=== PATIENT | female | born 1935 | race African-American/Black ===

== ENCOUNTER 2016-10-26 09:40 | Emergency (ER) | payer BC, MEDICARE ==
[~2016-10-26] VITALS: Ht 160 cm; Wt 74.8 kg
--- NOTE | 2016-10-26 10:15 | RAD ---
Indication constipation. Abdominal discomfort. A single view of the chest was obtained as well as flat and upright films of the abdomen. The chest is compared to an examination 7 years ago. The heart and pulmonary vessels appear normal. The lungs are clear. There is no pleural fluid or pneumothorax. There is mild scoliosis. Mild degenerative changes are seen in the visualized spinal column. There is no free air. The abdominal gas pattern is normal. No organomegaly or abnormal calculi are seen. Several calcifications are seen in the pelvis compatible with phleboliths. 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 IMPRESSION: No acute or significant finding seen in the chest or abdomen on plain films
[2016-10-26] MEDS ORDERED: MAGNESIUM CITRATE 296 ML SOLUTION. PO ONE (10:45)
[2016-10-26 10:50] VITALS: BP 134/70
[2016-10-26] MEDS ORDERED: POLY17PO29 PO (10:53)
--- NOTE | 2016-10-26 10:53 | PHYS DOC ---
Past Medical History Past Medical History: Arthritis, Constipation, Hypertension Past Surgical History: Hip Replacement, Other Additional Past Surgical Histo: left knee surgery Alcohol Use: None Drug Use: None Adult General Chief Complaint Chief Complaint: CONTISPATION HPI HPI Patient is a 81 year old female with history of hypertension, arthritis, and constipation who presents today complaining of constipation. Patient states for the last 1 month she is not had regular movements as usual on a daily. Patient states she used Metamucil Colace and prune juice and had a small bowel movement yesterday. Patient denies any abdominal pain, nausea or vomiting. Denies any diarrhea. Her last PO intake was this morning which she tolerated with no issues. Review of Systems Review of Systems Constitutional: Denies fever or chills [] Eyes: Denies change in visual acuity, redness, or eye pain [] HENT: Denies nasal congestion or sore throat [] Respiratory: Denies cough or shortness of breath [] Cardiovascular: No additional information not addressed in HPI [] GI constipation : Denies dysuria or hematuria [] Musculoskeletal: Denies back pain or joint pain [] Integument: Denies rash or skin lesions [] Neurologic: Denies headache, focal weakness or sensory changes [] Endocrine: Denies polyuria or polydipsia [] Allergies Allergies Allergies Coded Allergies Type Severity Reaction Last Updated Verified No Known Drug Allergies 09/19/13 No Physical Exam Physical Exam Constitutional: Well developed, well nourished, no acute distress, non-toxic appearance. [] HENT: Normocephalic, atraumatic, bilateral external ears normal, oropharynx moist, no oral exudates, nose normal. [] Eyes: PERRLA, EOMI, conjunctiva normal, no discharge. [] Neck: Normal range of motion, no tenderness, supple, no stridor. [] Cardiovascular:Heart rate regular rhythm, no murmur [] Lungs & Thorax: Bilateral breath sounds clear to auscultation [] Abdomen: Bowel sounds normal, soft, no tenderness, no masses, no pulsatile masses. [] Skin: Warm, dry, no erythema, no rash. [] Back: No tenderness, no CVA tenderness. [] Extremities: No tenderness, no cyanosis, no clubbing, ROM intact, no edema. [] Neurologic: Alert and oriented X 3, normal motor function, normal sensory function, no focal deficits noted. [] Psychologic: Affect normal, judgement normal, mood normal. [] Current Patient Data Vital Signs Vital Signs Date Time Temp Pulse Resp B/P (MAP) Pulse Ox O2 Delivery O2 Flow Rate FiO2 10/26/16 10:17 98.3 75 15 157/74 (101) 98 Room Air 98.3 EKG EKG [] Radiology/Procedures Radiology/Procedures []PROCEDURE: ACUTE ABDOMEN SERIES Indication constipation. Abdominal discomfort. A single view of the chest was obtained as well as flat and upright films of the abdomen. The chest is compared to an examination 7 years ago. The heart and pulmonary vessels appear normal. The lungs are clear. There is no pleural fluid or pneumothorax. There is mild scoliosis. Mild degenerative changes are seen in the visualized spinal column. There is no free air. The abdominal gas pattern is normal. No organomegaly or abnormal calculi are seen. Several calcifications are seen in the pelvis compatible with phleboliths. 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 IMPRESSION: No acute or significant finding seen in the chest or abdomen on plain films DICTATED and SIGNED BY: FLAVIO BECERRIL MD DATE: 10/26/16 1010 CC: MACKENZIE DOWNS; EDWARD BRAND APRN; NON,STAFF ~ Course & Med Decision Making Course & Med Decision Making Pertinent Labs and Imaging studies reviewed. (See chart for details) Patient is in the ED complaining of constipation. This is a chronic issue for her. She follows up with her PCP on this. She had a small bowel movement yesterday. We did an acute abdominal series in the ED which did not show anything acute. Her last bowel movement was yesterday. She is currently on Metamucil and Colace and prune juice. We gave her a bottle of mag citrate in the ED. We talked about increasing dietary fiber intake as well as water intake. She will follow-up with her own doctor in the next 7 days. She was provided return precautions and discharged in stable condition. Dragon Disclaimer Dragon Disclaimer This electronic medical record was generated, in whole or in part, using a voice recognition dictation system. Departure Departure Impression: Primary Impression: Constipation Disposition: 01 HOME, SELF-CARE Condition: STABLE Referrals: MACKENZIE DOWNS (PCP) follow up with your doctor in one week Patient Instructions: Constipation, Adult Additional Instructions: You were seen for constipation. Please consider increasing your dietary fiber intake as well as a water intake. Consider taking MiraLAX on daily basis. Continue using Colace every day. Use magnesium citrate occasionally for constipation. Follow-up with your doctor in the next 7 days. Scripts Polyethylene Glycol 3350 (MIRALAX) 17 Gm Powd.pack 1 PACKET PO DAILY, #30 PACKET 3 Refills Prov: EDWARD BRAND APRN 10/26/16 Problem Qualifiers Primary Impression: Constipation Constipation type: unspecified constipation type Qualified Codes: K59.00 - Constipation, unspecified EDWARD BRAND BRANCH LIBRARY CLERK October 26, 2016 10:53
== END 2016-10-26 10:58 | disposition home or self-care (01) ==
LOC: ER 09:40
DX: K59.00 Constipation, unspecified (principal); I10 Essential (primary) hypertension; M19.90 Unspecified osteoarthritis, unspecified site
CPT/HCPCS: 74022; 99284

== ENCOUNTER → 2016-12-25 | Outpatient (CLI) | payer BC ==
[~2016-12-25] MED LIST: CEPH500T PO; GADOBUTROL 7.5 MMOL/7.5 ML VIAL IV ONE; POLY17PO29 PO
--- NOTE | 2016-12-25 11:38 | RAD ---
EXAM: MRI LUMBAR SPINE WITH AND WITHOUT CONTRAST. HISTORY: Low back pain with left lower extremity radiculopathy. TECHNIQUE: Magnetic resonance images of the lumbar spine were obtained before and after the intravenous administration of 7.5 mL Gadavist. COMPARISON: None. FINDINGS: There is slight retrolisthesis at L2-3. No fractures are identified. Degenerative disc disease is severe from L1 through L3 and at L4-5. It is moderate at L3-4 and mild at L5-S1. The conus is at L1 and appears normal. There is one enhancing sacral nerve root. There is metallic artifact associated with bilateral total hip arthroplasties on the nurses medical assistants phlebotomists image. A cyst at the lower pole the left kidney measures 5.4 x 4.8 cm. 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 At L1-2, there is a moderate posterior disc bulge. Facet and ligamentum flavum and is mild bilaterally. At L2-3, there is a moderate posterior disc-osteophyte complex. Facet osteoarthritis is moderate on the right greater than left. These narrow the right lateral recess moderately. Neural foraminal stenosis is moderate on the right and mild left. At L3-4, there is a small posterior disc bulge. There is no stenosis. There are changes of right hemilaminotomy. There is no space-occupying granulation tissue. At L4-5, there is a moderate posterior disc-osteophyte complex with a superimposed right paracentral protrusion. It measures 6 mm anteroposteriorly. There is mild mass effect on the right L5 nerve root. Neural foraminal stenosis is moderate to severe on the right. Facet osteoarthritis is moderate bilaterally. At L5-S1, there is a small posterior disc bulge. Facet osteoarthritis is moderate to severe bilaterally. There is mild left neural foraminal narrowing. IMPRESSION: 1. Degenerative disc disease is severe from L1 through L3 and at L4-5. It is moderate at L3-4 and mild at L5-S1. 2. Right lateral recess stenosis is moderate at L4-5 secondary to a 6 mm right paracentral protrusion. Neural foraminal stenosis is moderate to severe at this level. 3. Additional lateral recess stenosis is mild on the right at L2-3. Additional neural foraminal stenosis is mild to moderate as above. 4. One enhancing nerve root appears to be associated with the sacral level. This may be an incidental finding or reflect radiculitis. Electronically signed by: Gianluca Castillo MD (12/25/2016 11:35 AM)
== END | disposition home or self-care (01) ==
LOC: MRI 09:53
PROVIDERS: ATTEND Neurological Surgery
DX: M51.16 Intervertebral disc disorders with radiculopathy, lumbar region (principal); M48.06 Spinal stenosis, lumbar region; I10 Essential (primary) hypertension
CPT/HCPCS: 72158; A9585

== ENCOUNTER 2016-12-28 09:57 | Emergency (ER) | payer BC ==
[~2016-12-28] VITALS: Ht 160 cm; Wt 74.8 kg
[~2016-12-28 09:57] MED LIST changes: -CEPH500T PO; -GADOBUTROL 7.5 MMOL/7.5 ML VIAL IV ONE
--- NOTE | 2016-12-28 10:30 | PHYS DOC ---
Past Medical History Past Medical History: Arthritis, Constipation, Hypertension Past Surgical History: Hip Replacement, Other Additional Past Surgical Histo: left knee surgery Alcohol Use: None Drug Use: None Adult General Chief Complaint Chief Complaint: OTHER COMPLAINTS [facility] HPI Patient is a 81 year old female who lives in assisted living presents to the emergency department with a history of frequent falls. Patient states she has a history of HTN, chronic back issues and constipation. Patient state she has fallen at least 3 times in the last week. She denies hitting her head. Patient denies using any assistive devises for ambulation. She is not a good historian. She denies light headedness, SOA, and chest pain. She states my knees just give out. Patient continues to state she had an MRI of her back although does not know the results. Patient is c/o left knee pain today after a fall yesterday. She does have 1 new bruise to the left upper knee area, and 1 old bruise to the medial area of the knee. Patient continues to state she started taking ultram yesterday. Review of Systems Review of Systems Constitutional: Denies fever or chills [] Eyes: Denies change in visual acuity, redness, or eye pain [] HENT: Denies nasal congestion or sore throat [] Respiratory: Denies cough or shortness of breath [] Cardiovascular: No additional information not addressed in HPI [] GI: Denies abdominal pain, nausea, vomiting, bloody stools or diarrhea [] : Denies dysuria or hematuria [] Musculoskeletal: Denies back pain. C/o left knee pain after multiple falls. Integument: Denies rash or skin lesions [] Neurologic: Denies headache, focal weakness or sensory changes [] Endocrine: Denies polyuria or polydipsia [] Allergies Allergies Allergies Coded Allergies Type Severity Reaction Last Updated Verified No Known Drug Allergies 09/19/13 No Physical Exam Physical Exam Constitutional: Well developed, well nourished, no acute distress, non-toxic appearance. [] HENT: Normocephalic, atraumatic, bilateral external ears normal, oropharynx moist, no oral exudates, nose normal. [] Eyes: PERRLA, EOMI, conjunctiva normal, no discharge. [] Neck: Normal range of motion, no tenderness, supple, no stridor. [] Cardiovascular:Heart rate regular rhythm, no murmur [] Lungs & Thorax: Bilateral breath sounds clear to auscultation [] Abdomen: Bowel sounds hypoactive, soft, no tenderness, no masses, no pulsatile masses. [] Skin: Warm, dry, no erythema, no rash. [] Back: No tenderness Extremities: No tenderness, no cyanosis, no clubbing, ROM intact, no edema. No swelling noted to the left knee, peripheral pulses 2+ cap refill brisk < 2 seconds. Patient with good sensation noted. Neurologic: Alert and oriented X 3, normal motor function, normal sensory function, no focal deficits noted. [] Psychologic: Affect normal, judgement normal, mood normal. [] Current Patient Data Vital Signs Vital Signs Date Time Temp Pulse Resp B/P (MAP) Pulse Ox O2 Delivery O2 Flow Rate FiO2 12/28/16 10:00 98.4 97 20 139/65 (89) 95 Room Air 98.4 Lab Values Laboratory Tests Test 12/28/16 10:52 12/28/16 11:25 White Blood Count 9.4 x10^3/uL (4.0-11.0) Red Blood Count 3.75 x10^6/uL (3.50-5.40) Hemoglobin 12.3 g/dL (12.0-15.5) Hematocrit 36.2 % (36.0-47.0) Mean Corpuscular Volume 97 fL (79-100) Mean Corpuscular Hemoglobin 33 pg (25-35) Mean Corpuscular Hemoglobin Concent 34 g/dL (31-37) Red Cell Distribution Width 12.6 % (11.5-14.5) Platelet Count 303 x10^3/uL (140-400) Neutrophils (%) (Auto) 78 % (31-73) H Lymphocytes (%) (Auto) 9 % (24-48) L Monocytes (%) (Auto) 12 % (0-9) H Eosinophils (%) (Auto) 0 % (0-3) Basophils (%) (Auto) 1 % (0-3) Neutrophils # (Auto) 7.3 x10^3uL (1.8-7.7) Lymphocytes # (Auto) 0.8 x10^3/uL (1.0-4.8) L Monocytes # (Auto) 1.1 x10^3/uL (0.0-1.1) Eosinophils # (Auto) 0.0 x10^3/uL (0.0-0.7) Basophils # (Auto) 0.1 x10^3/uL (0.0-0.2) Sodium Level 138 mmol/L (136-145) Potassium Level 3.6 mmol/L (3.5-5.1) Chloride Level 99 mmol/L (98-107) Carbon Dioxide Level 31 mmol/L (21-32) Anion Gap 8 (6-14) Blood Urea Nitrogen 20 mg/dL (7-20) Creatinine 0.9 mg/dL (0.6-1.0) Estimated GFR (Cockcroft-Gault) 73.1 BUN/Creatinine Ratio 22 (6-20) H Glucose Level 206 mg/dL (70-99) H Calcium Level 9.9 mg/dL (8.5-10.1) Total Bilirubin 0.8 mg/dL (0.2-1.0) Aspartate Amino Transferase (AST) 22 U/L (15-37) Alanine Aminotransferase (ALT) 17 U/L (14-59) Alkaline Phosphatase 75 U/L (46-116) Troponin I Quantitative < 0.017 ng/mL (0.000-0.055) Total Protein 7.5 g/dL (6.4-8.2) Albumin 3.8 g/dL (3.4-5.0) Albumin/Globulin Ratio 1.0 (1.0-1.7) Urine Collection Type Unknown Urine Color Yellow Urine Clarity Clear Urine pH 7.0 Urine Specific Sharon 1.020 Urine Protein Negative mg/dL (NEG-TRACE) Urine Glucose (UA) Negative mg/dL (NEG) Urine Ketones (Stick) Negative mg/dL (NEG) Urine Blood Negative (NEG) Urine Nitrite Negative (NEG) Urine Bilirubin Negative (NEG) Urine Urobilinogen Dipstick 1.0 mg/dL (0.2 mg/dL) Urine Leukocyte Esterase Trace (NEG) Urine RBC 0 /HPF (0-2) Urine WBC Occ /HPF (0-4) Urine Squamous Epithelial Cells Mod /LPF Urine Bacteria Few /HPF (0-FEW) Laboratory Tests 12/28/16 10:52 Laboratory Tests 12/28/16 10:52 EKG EKG EKG completed at 1027. Heart rate 75 sinus rhythm noted no STEMI per Dr. Boyle. [] Radiology/Procedures Radiology/Procedures [][facility] [address] [place] [address] IMAGING REPORT Signed PATIENT: REJI AGUILAR I ACCOUNT: [id number] : 1935 LOCATION: ER AGE: 81 SEX: F EXAM STATUS: REG ER ORD. PHYSICIAN: SYDNI WASHINGTON APRN REASON: multiple falls PROCEDURE: KNEE LEFT 4V Examination: 4 views of the left knee History: History of knee pain, fall. Comparison: None available. Findings: Left knee arthroplasty changes in normal alignment. There is no acute fracture or dislocation identified. Small sclerotic focus identified in the medial distal femur probably a bone island. Impression: 1. Arthroplasty changes in normal alignment. 2. No acute osseous findings. DICTATED and SIGNED BY: LUCI VIZCARRA MD DATE: 12/28/161048 CC: MACKENZIE DOWNS; SYDNI WASHINGTON APRN ~ Course & Med Decision Making Course & Med Decision Making Pertinent Labs and Imaging studies reviewed. (See chart for details) Urine was positive for trace leukocyte Estrace. CBC, chemistries and troponin as well as x-rays are normal. X-rays with no bony abnormalities. Spoke with patient in regards to being placed into the hospital for placement. Patient however is in assisted living. Patient was also provided with information in regards to using a walker as opposed to being admitted. Patient does have access to a walker in which she will hand picker on the way home. Patient states that her knee is getting stiff. Explained to patient that active range of motion will help with the stiffness this is related to falls. Patient was encouraged to use ice packs on 20 minutes off 20 minutes several times a day elevation as much as possible. Patient will be recommended to use Tylenol or low -dose ibuprofen for pain and discomfort. Patient was encouraged to follow-up with Dr. rios and a orthopedic doctor for evaluation of her back as well as her left knee. Patient will be discharged home in stable condition signs and symptoms to return back to the emergency department been provided with both patient and family member at bedside agree with the treatment regimen. Patient was encouraged to drink plenty of fluids such as water and cranberry juice. She' ll be placed on Keflex for urinary tract infection. Dragon Disclaimer Dragon Disclaimer This electronic medical record was generated, in whole or in part, using a voice recognition dictation system. Departure Departure Impression: Primary Impression: Falls Additional Impressions: Left knee pain Urinary tract infection Disposition: HOME, SELF-CARE Condition: STABLE Referrals: MACKENZIE DOWNS (PCP) KARISHMA FERREIRA II, MD Patient Instructions: Fall Prevention and Home Safety, [id number], Knee Pain , [id number], Urinary Tract Infection, [id number], Walker Use Additional Instructions: Your lab results were negative for any abnormality however your glucose was slightly elevated. Your x-ray was negative for any bony abnormalities. Urine was positive for trace of leukocyte Estrace which identifies a urinary tract infection. Medication as prescribed. Drink plenty of fluids such as water and cranberry juice. Avoid cranberry juice cocktail, carbonated beverages, caffeine, alcohol, citrus fruits as these are all considered irritants to the bladder. You may use Tylenol or ibuprofen for pain and discomfort. Please use this as directed by aircraft engine technician [id number]. Ice packs on 20 minutes off 20 minutes several times a day. Elevation as much as possible. Use the walker in which she state you have access to whenever you are up ambulating to help prevent falls. Follow-up with Dr. Davalos in the next 3-5 days. Follow-up with orthopedic in the next week if he continued have pain and discomfort in the left knee area. Return back to emergency department for signs and symptoms of become worse. Scripts Cephalexin (CEPHALEXIN) 500 Mg Tablet 1 TAB PO BID, #14 TAB Prov: SYDNI WASHINGTON APRN 12/28/16 Problem Qualifiers SYDNI WASHINGTON APRN Dec 28, 2016 10:30
--- NOTE | 2016-12-28 11:02 | RAD ---
Examination: 4 views of the left knee History: History of knee pain, fall. Comparison: None available. Findings: Left knee arthroplasty changes in normal alignment. There is no acute fracture or dislocation identified. Small sclerotic focus identified in the medial distal femur probably a bone island. Impression: 1. Arthroplasty changes in normal alignment. 2. No acute osseous findings.
[2016-12-28 11:04] LABS: BASO # 0.1 x10^3/uL (0.0-0.2); BASO % 1 % (0-3); EOS % 0 % (0-3); HEMATOCRIT 36.2 % (36.0-47.0); HEMOGLOBIN 12.3 g/dL (12.0-15.5); LYMPH # 0.8 x10^3/uL (1.0-4.8); LYMPH % 9 % (24-48); MEAN CORPUSCULAR HEMOGLOBIN 33 pg (25-35); MEAN CORPUSCULAR HGB CONC 34 g/dL (31-37); MEAN CORPUSCULAR VOLUME 97 fL (79-100); MONO % 12 % (0-9); NEUT % 78 % (31-73); PLATELET COUNT 303 x10^3/uL (140-400); RED BLOOD COUNT 3.75 x10^6/uL (3.50-5.40); RED CELL DISTRIBUTION WIDTH 12.6 % (11.5-14.5); WHITE BLOOD COUNT 9.4 x10^3/uL (4.0-11.0)
[2016-12-28 11:10] LABS: CALCIUM 9.9 mg/dL (8.5-10.1); CREATININE 0.9 mg/dL (0.6-1.0); GFR 73.1; POTASSIUM 3.6 mmol/L (3.5-5.1)
[2016-12-28 11:15] LABS: ALBUMIN 3.8 g/dL (3.4-5.0); TOTAL BILIRUBIN 0.8 mg/dL (0.2-1.0); TOTAL PROTEIN 7.5 g/dL (6.4-8.2)
--- NOTE | 2016-12-28 11:41 | EKG ---
[facility] [address] [place] [address] Test Date: 2016-12-28 Test Time: 10:27:08 Pat Name: REJI AGUILAR Department: Room: Gender: F Glass Crusher: : 1935 Requested By: SYDNI WASHINGTON Order Number: [id number] Reading MD: Measurements Intervals [place] Rate: 75 P: 31 VA: 178 QRS: 71 QRSD: 94 T: 16 QT: 352 QTc: 396 Interpretive Statements SINUS RHYTHM QRS(T) CONTOUR ABNORMALITY CONSIDER ANTEROLATERAL MYOCARDIAL DAMAGE RI6.01 Unconfirmed report No previous ECG available for comparison
[2016-12-28 11:43] LABS: BILIRUBIN,URINE NEGATIVE (NEG); GLUCOSE,URINE NEGATIVE (NEG); NITRITE,URINE NEGATIVE (NEG); PROTEIN,URINE NEGATIVE (NEG-TRACE)
[2016-12-28 11:55] LABS: BACTERIA,URINE FEW /HPF (0-FEW); RBC,URINE 0 /HPF (0-2); SQUAMOUS EPITHELIAL CELL,UR MOD /LPF; WBC,URINE OCC /HPF (0-4)
[2016-12-28] MEDS ORDERED: CEPH500T PO (12:00)
[2016-12-28 12:12] VITALS: BP 154/73
== END 2016-12-28 12:34 | disposition home or self-care (01) ==
LOC: ER 09:57
DX: N39.0 Urinary tract infection, site not specified (principal); M25.562 Pain in left knee; I10 Essential (primary) hypertension; M19.90 Unspecified osteoarthritis, unspecified site; Z96.642 Presence of left artificial hip joint; Z98.890 Other specified postprocedural states; W18.39XA Other fall on same level, initial encounter; Y93.89 Activity, other specified; Y99.8 Other external cause status; Y92.89 Other specified places as the place of occurrence of the external cause
CPT/HCPCS: 36415; 73564; 80053; 81001; 84484; 85027; 87086; 93005; 99285-25

== ENCOUNTER 2018-10-27 05:42 | Emergency (ER) | payer BC ==
[~2018-10-27] VITALS: Ht 160 cm; Wt 70.3 kg
[~2018-10-27 05:42] MED LIST changes: +CEPH500T PO
[2018-10-27 05:50] VITALS: BP 120/59
[2018-10-27] MEDS ORDERED: HYDROcodone/APAP 5/325MG 1 TAB TABLET PO ONE (06:30)
--- NOTE | 2018-10-27 06:57 | RAD ---
Examination: CT lumbar spine without contrast HISTORY: History of low back pain COMPARISON: None available TECHNIQUE: Axial CT images of the lumbar spine were performed without contrast. Coronal and sagittal reformats are performed Exposure: One or more of the following individualized dose reduction techniques were utilized for this examination: 1. Automated exposure control 2. Adjustment of the mA and/or kV according to patient size 3. Use of iterative reconstruction technique FINDINGS: The lumbar vertebral body heights are maintained. Severe intervertebral disc height loss identified throughout the lumbar spine likely due to degeneration. L1-L2: Diffuse disc bulge with left paracentral disc protrusion identified. Moderate spinal canal stenosis. Moderate left, mild right neural foraminal narrowing. L2-L3: Diffuse disc bulge with left paracentral disc protrusion. Moderate spinal canal stenosis. Moderate left, mild right neural foraminal narrowing L3-L4: Diffuse disc bulge causing moderate spinal canal stenosis. Mild bilateral neural foraminal narrowing L4-L5: Diffuse disc bulge causing posterior disc protrusion causing moderate to severe spinal canal stenosis. Moderate bilateral neural foraminal narrowing. L4 right hemilaminectomy changes. L5-S1: Diffuse disc bulge causing [id number] spinal canal stenosis. Mild bilateral neural foraminal narrowing IMPRESSION: Multilevel degenerative changes lumbar spine as described above. If pain persists , recommend follow-up MRI. Electronically signed by: Kamaljit Higgins MD (10/27/2018 6:54 AM) [id number]
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
[2018-10-27] MEDS ORDERED: METH4TAB2 PO (08:07)
[2018-10-27] MEDS ORDERED: HYDR-3164 PO (08:07)
== END 2018-10-27 08:22 | disposition home or self-care (01) ==
LOC: ER 05:42
DX: S39.012A Strain of muscle, fascia and tendon of lower back, initial encounter (principal); M51.26 Other intervertebral disc displacement, lumbar region; I10 Essential (primary) hypertension; Z96.649 Presence of unspecified artificial hip joint; X50.0XXA Overexertion from strenuous movement or load, initial encounter; Y93.89 Activity, other specified; Y92.89 Other specified places as the place of occurrence of the external cause; Y99.8 Other external cause status
CPT/HCPCS: 72131; 99284-25

== ENCOUNTER → 2019-03-01 | Outpatient (CLI) | payer BC ==
[2019-01-15 11:08] VITALS: BP 130/86
[~2019-03-01] MED LIST changes: +DILT360C2 PO; +HYDR-3164 PO; +IOHEXOL 180 MG/ML 10 ML VIAL. ONE; +METH4TAB2 PO; +TRIA1CAP3 PO; +methylPREDNISolone ACETATE 40 MG/ML VIAL. ONE; +methylPREDNISolone ACETATE 80 MG/ML VIAL. ONE
--- NOTE | 2019-03-01 23:06 | PAIN ---
DATE OF SERVICE: 03/01/2019 PROGRESS NOTE FOR PAIN CLINIC DIAGNOSES: Lumbar radiculopathy with lumbar degenerative disk disease and lumbar post-laminectomy syndrome. HISTORY OF PRESENT ILLNESS: The patient is an 83-year-old female who returns for followup status post lumbar epidural steroid injection x 1, last seen as an inpatient on 01/13/2019. The patient did very well, reports now about a 60-70% improvement after the injection for several weeks, the pain is returning now; however, over the past week or so in the right lower extremity, lateral calf and foot with numbness and tingling. The patient reports it is a 3 on a scale of 10 at its worst, 2 on average and a 1 at its least over the past week. The patient reports it is tingling, burning, constant, and severe in the right foot with walking, standing, changing positions, does not awaken her from sleep at night, though worse with weightbearing only. The patient reports no new motor or sensory deficits, no new bowel or bladder incontinence. PHYSICAL EXAMINATION: VITAL SIGNS: The patient's blood pressure 115/62, pulse 76, respirations are 18, temperature 98.2 degrees Fahrenheit, height is 5 feet 3 inches, and weight is 152 pounds. GENERAL: The patient is awake, alert, oriented, appropriate, very pleasant demeanor. HEENT: Shows normocephalic, atraumatic. Extraocular movements are intact and symmetrical. Oral cavity: Mucous membranes moist and pink. Dentition is intact. NECK: Shows anterior throat supple without palpable lymphadenopathy noted. Swallow reflex symmetrical. CHEST: Shows normal on inspection. Breath sounds clear to auscultation bilaterally. HEART: Shows S1, S2 clear. No murmurs auscultated. ABDOMEN: Soft, nontender, nondistended. No palpable organomegaly is noted. No rebound or guarding demonstrated. BACK: Shows spine grossly in the midline. Normal-appearing thoracic kyphosis and minor flattening of lumbar lordotic curvature. Lumbar paraspinous muscle shows symmetrical on inspection, on palpation shows some moderate tenderness with palpation, but only diffusely without significant radiation. The patient has good rotational motion of lumbar spine, both laterally as well as extension and flexion without significant difficulty. EXTREMITIES: The patient's lower extremities show deep tendon reflexes 1+ in the patellar and tendo-calcaneus tendon. Motor exam is approximately 4 on a scale of 5 on the right and 5/5 on the left with dorsiflexion. Peripheral pulses are 1+ posterior tibia. No peripheral edema is noted bilaterally. Options were discussed with the patient. The patient's old chart was reviewed as her current medication regimen updated. Current review of systems updated today as well. We will proceed with a second in the series of lumbar epidural steroid injection today with fluoroscopic guidance. Risks were again discussed including, but not limited to bleeding, infection, possibility of epidural hematoma, subsequent neurological compromise, dural puncture, headaches, spinal cord and/or nerve damage, side effects of steroid medication and poor results regarding pain control. The patient understands and wished to proceed. The patient will return to clinic in approximately 2 weeks for followup. She was counseled on return appointment, activity level and side effects to be aware of. DIAGNOSIS: Lumbar radiculopathy with lumbar degenerative disk disease and lumbar post-laminectomy syndrome. PROCEDURE: Lumbar epidural steroid injection, translaminar approach L5-S1 level using C-arm fluoroscopic guidance under sterile prep and drape using local anesthetic. MEDICATION INJECTED: The patient received a total of 120 mg Depo-Medrol plus 10 mL of preservative-free normal saline and 2 mL of contrast. CONDITION AT DISCHARGE: Stable. The patient tolerated procedure well, had no complications. ROSSANA HUITRON MD DR: MIROSLAVA/dayv JOB#: [id number] / [id number]
== END ==
LOC: PNCL 11:52
PROVIDERS: ATTEND Anesthesiology
DX: M51.16 Intervertebral disc disorders with radiculopathy, lumbar region (principal); M96.1 Postlaminectomy syndrome, not elsewhere classified
CPT/HCPCS: 62323; J1030; J1040; Q9965

== ENCOUNTER → 2019-05-14 | Outpatient (CLI) | payer BC ==
[2019-01-15 11:08] VITALS: BP 130/86
[~2019-05-14] MED LIST changes: +TRAM50TA PO
--- NOTE | 2019-05-15 00:57 | PAIN ---
DATE OF SERVICE: 05/14/2019 PROGRESS NOTE FOR PAIN CLINIC DIAGNOSES: Lumbar radiculopathy with lumbar degenerative disk disease and lumbar post-laminectomy syndrome. HISTORY OF PRESENT ILLNESS: The patient is an 84-year-old female who returns for followup status post lumbar epidural steroid injection x 2; first in December and then in February of this year. The patient reports only about 25-30% improvement after the injection, still pain in the low back and right lower extremity. The patient reports it is tingling and burning pains on and off in intensity, rated as 7 on a scale of 10 at its worst over the past week, 5 on average and 3 at its least and is 3 today. The patient reports low back, right lower extremity, posterior gluteus, lateral thigh, anterior thigh, medial thigh, medial lower leg and lateral lower leg, into the foot on the right, it is worse with walking and standing, better with sitting or lying down, awakens her from sleep about every 3-4 hours. However, the patient reports initially she was doing better with distance walking, doing household activities, traveling with greater ease and comfort, but now the pain is returning fairly significantly over the past month or so. PHYSICAL EXAMINATION: VITAL SIGNS: The patient's blood pressure is 130/78, pulse 93, respirations 18, temperature 98.5 degrees Fahrenheit. Height is 5 feet 3 inches. Weight is 143 pounds. GENERAL: The patient is awake, alert, oriented, appropriate, very pleasant demeanor. HEENT: Shows normocephalic, atraumatic. Extraocular movements are intact and symmetrical. Oral cavity shows mucous membranes are moist and pink. Dentition is intact. NECK: Shows anterior throat supple without palpable lymphadenopathy noted. Swallow reflex symmetrical. CHEST: Shows normal on inspection. Breath sounds are clear bilaterally. HEART: Shows S1 and S2 clear. No murmurs auscultated. ABDOMEN: Soft, nontender, nondistended. BACK: Shows spine grossly in the midline. Normal appearing thoracic kyphosis and lumbar lordotic curvature slightly flattened with well-healed surgical scar noted. Lumbar paraspinous muscle shows symmetrical on inspection, with palpation shows some moderate tenderness diffusely in the middle and lower distribution of the paraspinous muscles, but only diffusely without radiation. EXTREMITIES: The patient's lower extremities showed deep tendon reflexes 1+ in the patellar and tendo calcaneus tendons are equal. Motor exam is approximately 4 on a scale of 5 on the right and 5/5 on the left. Peripheral pulses are 1+ posterior tibial. No peripheral edema is noted bilaterally. Options were discussed with the patient. The patient's old chart was reviewed as her current medication regimen updated. Current review of systems updated today as well. We will proceed with a third in the series of lumbar epidural steroid injection today with fluoroscopic guidance. Risks were again discussed including but not limited to bleeding, infection, possibility of epidural hematoma, subsequent neurological compromise, dural puncture, headaches, spinal cord and/or nerve damage, side effects of steroid medication and poor results regarding pain control. The patient understands and wished to proceed. The patient will return to clinic in approximately 2 weeks for followup. She was counseled on return appointment, activity level and side effects to be aware of. DIAGNOSES: Lumbar radiculopathy with lumbar degenerative disk disease and lumbar post-laminectomy syndrome. PROCEDURE: Lumbar epidural steroid injection translaminar approach at the L4-L5 level using C-arm fluoroscopic guidance under sterile prep and drape using local anesthetic. MEDICATIONS INJECTED: A total of 120 mg of Depo-Medrol plus 10 mL of preservative-free normal saline and 2 mL of contrast. CONDITION AT DISCHARGE: Stable. The patient tolerated procedure well, had no complications. ROSSANA HUITRON MD DR: MIROSLAVA/davy JOB#: [id number] / [id number]
== END ==
LOC: PNCL 10:41
PROVIDERS: ATTEND Anesthesiology
DX: M51.16 Intervertebral disc disorders with radiculopathy, lumbar region (principal); M96.1 Postlaminectomy syndrome, not elsewhere classified
CPT/HCPCS: 62323; J1030; J1040; Q9965

== ENCOUNTER → 2021-03-14 | Outpatient (CLI) | payer BC ==
[2019-01-15 11:08] VITALS: BP 130/86
[~2021-03-14] MED LIST changes: -IOHEXOL 180 MG/ML 10 ML VIAL. ONE; -methylPREDNISolone ACETATE 40 MG/ML VIAL. ONE; -methylPREDNISolone ACETATE 80 MG/ML VIAL. ONE
[2021-03-14 12:44] LABS: BASO % 1 % (0-3); EOS # 0.2 x10^3/uL (0.0-0.7); EOS % 2 % (0-3); HEMATOCRIT 32.1 % (36.0-47.0); HEMOGLOBIN 10.9 g/dL (12.0-15.5); LYMPH # 1.2 x10^3/uL (1.0-4.8); LYMPH % 14 % (24-48); MEAN CORPUSCULAR HEMOGLOBIN 33 pg (25-35); MEAN CORPUSCULAR HGB CONC 34 g/dL (31-37); MEAN CORPUSCULAR VOLUME 98 fL (79-100); MONO # 1.1 x10^3/uL (0.0-1.1); MONO % 13 % (0-9); NEUT # 6.1 x10^3/uL (1.8-7.7); NEUT % 71 % (31-73); PLATELET COUNT 354 x10^3/uL (140-400); RED BLOOD COUNT 3.28 x10^6/uL (3.50-5.40); RED CELL DISTRIBUTION WIDTH 15.1 % (11.5-14.5); WHITE BLOOD COUNT 8.7 x10^3/uL (4.0-11.0)
[2021-03-14 13:08] LABS: ALBUMIN 3.2 g/dL (3.4-5.0); ALBUMIN/GLOBULIN RATIO 0.8 (1.0-1.7); CALCIUM 9.6 mg/dL (8.5-10.1); CREATININE 0.8 mg/dL (0.6-1.0); GFR 82.9; POTASSIUM 4.4 mmol/L (3.5-5.1); TOTAL BILIRUBIN 0.4 mg/dL (0.2-1.0)
[2021-03-14 13:23] LABS: PLT ESTIMATE ADEQUATE (ADEQUATE)
[2021-03-14 13:24] LABS: ANISOCYTOSIS PRESENT
--- NOTE | 2021-03-14 17:30 | RAD ---
XR BILATERAL HIP (WITH OR WITHOUT PELVIS) 2 VIEWS_RIGHT History: Right hip pain Comparison: None. Technique: AP view of the pelvis and proximal femora. Cone-down frog-leg lateral views of the bilater al hips. 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 The right hip is well seated within the acetabular cup. There is suggestion of mild asymmetry in the left hip, somewhat high riding in the ac etabular cup. No acute osseous abnormality is identified. There are degenerative changes of the sacro iliac joints and lower lumbar spine. Dystrophic calcification superior to the greater trochanter in t he bilateral hips. Impression: 1. No acute osseous abnormality in the pelvis or bilateral hips. 2. 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 3. Left total hip arthroplasty mildly asymmetric within the acetabular cup which may represent asymm etric polyethylene wear. Electronically signed by: Lev Adams MD (03/14/2021 5:28 PM) [id number]
[2021-03-15 02:09] LABS: HEMOGLOBIN A1C 5.6 % (4.8-5.6)
== END ==
LOC: RAD 11:39
PROVIDERS: ATTEND Family Medicine
DX: M25.551 Pain in right hip (principal); D64.9 Anemia, unspecified; R73.01 Impaired fasting glucose; M46.1 Sacroiliitis, not elsewhere classified; Z96.643 Presence of artificial hip joint, bilateral
CPT/HCPCS: 36415; 73502; 80053; 82607; 82728; 83036; 83540; 83550; 84436; 84443; 85025

== ENCOUNTER → 2021-06-25 | Outpatient (CLI) | payer BC ==
[2021-05-18 15:00] VITALS: BP 144/65
[~2021-06-25] MED LIST changes: +AMLO-187 PO; +METO25TA4 PO; +PANT40TA77 PO
[2021-06-25 12:34] LABS: BASO % 1 % (0-3); EOS # 0.1 x10^3/uL (0.0-0.7); EOS % 1 % (0-3); HEMATOCRIT 34.5 % (36.0-47.0); HEMOGLOBIN 11.5 g/dL (12.0-15.5); LYMPH # 1.2 x10^3/uL (1.0-4.8); LYMPH % 18 % (24-48); MEAN CORPUSCULAR HEMOGLOBIN 32 pg (25-35); MEAN CORPUSCULAR HGB CONC 33 g/dL (31-37); MEAN CORPUSCULAR VOLUME 97 fL (79-100); MONO # 0.7 x10^3/uL (0.0-1.1); MONO % 11 % (0-9); NEUT # 4.7 x10^3/uL (1.8-7.7); NEUT % 70 % (31-73); PLATELET COUNT 425 x10^3/uL (140-400); RED BLOOD COUNT 3.56 x10^6/uL (3.50-5.40); RED CELL DISTRIBUTION WIDTH 16.1 % (11.5-14.5); WHITE BLOOD COUNT 6.8 x10^3/uL (4.0-11.0)
[2021-06-25 12:53] LABS: CALCIUM 9.8 mg/dL (8.5-10.1); CREATININE 0.7 mg/dL (0.6-1.0); GFR 96.5
[2021-06-25 12:57] LABS: ALBUMIN 3.5 g/dL (3.4-5.0); ALBUMIN/GLOBULIN RATIO 0.8 (1.0-1.7); TOTAL BILIRUBIN 0.6 mg/dL (0.2-1.0); TOTAL PROTEIN 7.8 g/dL (6.4-8.2)
== END ==
LOC: ONCLAB 12:02
PROVIDERS: ATTEND Internal Medicine Hematology & Oncology
DX: C18.2 Malignant neoplasm of ascending colon (principal)
CPT/HCPCS: 36415; 80053; 82378; 85025